=== PATIENT | male | born 1995 | race African-American/Black ===

== ENCOUNTER 2017-11-16 06:11 | Emergency (ER) | payer OTHER ==
[~2017-11-16] VITALS: Ht 188 cm; Wt 83.9 kg
[2017-11-16] MEDS ORDERED: NOHOMEMEDICATIONS (06:27)
[2017-11-16 08:33] VITALS: BP 120/71
== END 2017-11-16 08:54 | disposition home or self-care (01) ==
LOC: ER 06:11
DX: S01.21XA Laceration without foreign body of nose, initial encounter (principal); F17.210 Nicotine dependence, cigarettes, uncomplicated; W20.8XXA Other cause of strike by thrown, projected or falling object, initial encounter; Y92.89 Other specified places as the place of occurrence of the external cause; Y93.89 Activity, other specified; Y99.8 Other external cause status

== ENCOUNTER 2017-11-23 11:09 | Emergency (ER) | payer BC, OTHER ==
[~2017-11-23] VITALS: Ht 188 cm; Wt 83.9 kg
[~2017-11-23 11:09] MED LIST: NOHOMEMEDICATIONS
[2017-11-23 11:19] VITALS: BP 120/74
== END 2017-11-23 12:03 | disposition home or self-care (01) ==
LOC: ER 11:09
DX: S01.21XD Laceration without foreign body of nose, subsequent encounter (principal); X58.XXXD Exposure to other specified factors, subsequent encounter; F17.210 Nicotine dependence, cigarettes, uncomplicated